=== PATIENT | male | born 1965 | race Caucasian/White ===

== ENCOUNTER → 2019-04-12 | Day surgery (SDC) | payer OTHER ==
[2019-04-10 10:31] LABS: BASOPHILS # (AUTO) 0.1 (0.0-0.1); BASOPHILS % 0.9 % (0.0-1.0); EOSINOPHILS # (AUTO) 0.1 (0.0-0.4); EOSINOPHILS % 1.7 % (0.0-6.0); HEMATOCRIT 44.9 % (38.2-49.6); HEMOGLOBIN 14.9 g/dL (14.0-18.0); LYMPHOCYTES # (AUTO) 1.6 (1.0-3.2); MEAN CORPUSCULAR HEMOGLOBIN 30.3 pg (28-32); MEAN CORPUSCULAR HGB CONC 33.2 g/dL (31-35); MEAN CORPUSCULAR VOLUME 91.3 fL (81-99); MONOCYTES # (AUTO) 0.7 (0.2-0.8); MONOCYTES % 9.2 % (4.4-11.3); NEUTROPHILS # (AUTO) 5.1 (2.1-6.9); NEUTROPHILS % 66.9 % (38.7-80.0); PLATELET COUNT 266 x10e3/uL (140-360); RED BLOOD COUNT 4.92 x10e6/uL (4.3-5.7); RED CELL DISTRIBUTION WIDTH 12.9 % (11.7-14.4)
[2019-04-10 10:48] LABS: ALANINE AMINOTRANSFERASE 22 IU/L (0-55); ALBUMIN 3.6 g/dL (3.5-5.0); ALBUMIN/GLOBULIN RATIO 1.2 (0.8-2.0); ALKALINE PHOSPHATASE 76 IU/L (40-150); BLOOD UREA NITROGEN 11 mg/dL (7-26); BUN/CREATININE RATIO 9 (6-25); CALCIUM 9.4 mg/dL (8.4-10.2); CARBON DIOXIDE 29 mmol/L (22-29); CHLORIDE 100 mmol/L (98-107); CREATININE, SERUM 1.17 mg/dL (0.72-1.25); EST GLOMERULAR FILTRATION RATE > 60 ML/MIN (60-); GLUCOSE 224 mg/dL (74-118); SODIUM 136 mmol/L (136-145)
[~2019-04-12] VITALS: Ht 177.8 cm; Wt 99.8 kg
[2019-04-12] VITALS (9 sets, daily range): BP systolic 105–174; BP diastolic 67–101
[~2019-04-12] MED LIST: ASPIR 8181 MG PO; CRESTOR10 MG PO; FENTANYL CITRATE/PF 100MCG/2 ML INJ ONE; HEPARIN SOD (PORCINE) 1000 UNIT/ML 30ML ONE; HEPARIN SOD/SOD CHLORIDE 2,000 ML ONE; IOPAMIDOL 370 MG/ML 200 ML INFUS..BTL INJ ONE; LANTUS 3ML100 UNITS/ SC; LEVITRA20 MG PO; LIDOCAINE HCL 2% LOCAL 20 ML VIAL ONE; LISINOPRIL10 MG PO; METFORMIN HCL500 MG PO; MIDAZOLAM HCL 2 MG/2 ML VIAL ONE; NITROGLYCERIN/D5W 200 MCG/ML 250 ML ONE; NOVOLOG100 UNIT/1 SC; SODIUM CHLORIDE 0.9% 1000ML 1,000 ML ONE; TESTOSTERO200 MG/1 M IM; VERAPAMIL HCL 2.5 MG/ML 2 ML VIAL ONE
--- OUTSIDE RECORDS SUMMARY | 2019-04-12 06:19 | XMS REPORT | Summary of Care ---
Author Author [facility] Organization [facility] Urology [facility] Address Unknown Phone Unavailable Encounter HQ Encntr_alijuanito(FIN) [id number] Date(s): 12/21/18 - 12/21/18 [facility] Urology [address] [address]- [phone] Discharge Disposition: Home or Self Care Attending Physician: Mitch Yuen MD Vital Signs No data available for this section Problem List Condition Effective Dates Status Health Status Informant Simple Active obesity(Confirmed) Allergies, Adverse Reactions, Alerts No Known Medication Allergies Medications No data available for this section Results No data available for this section Immunizations No data available for this section Procedures Procedure Date Related Diagnosis Body Site Status Collection of venous blood by venipuncture 12/21/18 Completed Social History No data available for this section Assessment and Plan No data available for this section
--- OUTSIDE RECORDS SUMMARY | 2019-04-12 06:19 | XMS REPORT | Summary of Care ---
Author Author [facility] Organization [facility] Urology [facility] Address Unknown Phone Unavailable Encounter RADHA Herzog(FIN) [id number] Date(s): 01/04/19 - 01/04/19 [facility] Urology [address] [address]- [phone] Discharge Disposition: Home or Self Care Attending Physician: Mitch Yuen MD Vital Signs Most recent to 1 oldest [Reference Range]: Height 177.8 cm (01/04/19 4:03 PM) Weight 101.534 kg (01/04/19 4:03 PM) Body Mass Index 32.12 m2 (01/04/19 4:03 PM) Problem List Condition Effective Dates Status Health Status Informant Diabetes(Confirmed) Resolved High Resolved cholesterol(Confirme d) High blood Resolved pressure(Confirmed) Hypogonadism Resolved male(Confirmed) Simple Active obesity(Confirmed) Allergies, Adverse Reactions, Alerts No Known Medication Allergies Medications No Known Medications Results No data available for this section Immunizations No data available for this section Procedures Procedure Date Related Diagnosis Body Site Status Operation on neck 2006 Completed Social History Social History Type Response Smoking Status Former smoker; Exposure to Tobacco Smoke None; Cigarette Smoking Last 365 Days No; Reg Smoking Cessation Counseling No1 entered on: 01/04/19 CARMEN ORTIZ 2014 Assessment and Plan No data available for this section
--- OUTSIDE RECORDS SUMMARY | 2019-04-12 06:19 | XMS REPORT | Continuity of Care Document ---
Author Author [facility] Organization [facility] Address Unknown Phone Unavailable Care Team Providers Care Strategy Director Name Role Phone [facility] Unavailable Unavailable Problems Problem Status Onset Date Classification Date Reported Comments Source Simple obesity (disorder) Active Problem 01/06/2019 [facility] Diabetes mellitus (disorder) Resolved Problem 01/06/2019 [facility] Hypercholesterolemia (disorder) Resolved Problem 01/06/2019 [facility] Hypertensive disorder, systemic arterial (disorder) Resolved Problem 01/06/2019 [facility] Male hypogonadism (disorder) Resolved Problem 01/06/2019 [facility] Medications Medication Details Route Status Patient Instructions Ordering Provider Order Date Source vardenafil 20 MG Oral Tablet [Levitra] 20 mg=1 tab, PO, Daily, PRN for erectile dysfunction, 1 hour before sexual activity, # 2 tab, 11 Refill(s) Active 12/14/2018 [facility] testosterone cypionate 200 mg/mL intramuscular solution 100 mg, IM, Q7D, inject 0.5cc(100mcg) every 7 days, # 10 mL, 5 Refill(s) Active 12/14/2018 [facility] Rosuvastatin calcium 10 MG Oral Tablet [Crestor] 10 mg=1 tab, PO, Bedtime, 0 Refill(s) Active 12/14/2018 [facility] 24 HR Linagliptin 5 MG / Metformin hydrochloride 1000 MG Extended Release Oral Tablet 1 tab, PO, Daily, 0 Refill(s) Active 12/14/2018 [facility] Lisinopril PO, Daily, 0 Refill(s) Active 12/14/2018 [facility] NovoLog SUB-Q, TID-Before Meals, 0 Refill(s) Active 12/14/2018 [facility] 3 ML Insulin Glargine 100 UNT/ML Prefilled Syringe [Lantus] SUB-Q, 0 Refill(s) Active 12/14/2018 [facility] Allergies, Adverse Reactions, Alerts Substance Category Reaction Severity Reaction type Status Date Reported Comments Source No Known Medication Allergies Assertion Drug allergy [facility] Immunizations No Data Provided for This Section Results No Data Provided for This Section Pathology Reports No Data Provided for This Section Diagnostic Reports No Data Provided for This Section Consultation Notes No Data Provided for This Section Discharge Summaries No Data Provided for This Section History and Physicals No Data Provided for This Section Vital Signs Vital Sign Value Date Comments Source BMI Calculated 32.12 01/04/2019 [facility] Weight 101.534 01/04/2019 [facility] Height 177.8 cm 01/04/2019 [facility] BMI Calculated 30.63 12/14/2018 [facility] Systolic (mm Hg) 161 12/14/2018 [facility] Diastolic (mm Hg) 118 12/14/2018 [facility] Heart Rate 92 12/14/2018 [facility] Height 177.8 cm 12/14/2018 [facility] Weight 96.818 12/14/2018 [facility] Encounters Location Location Details Encounter Type Encounter Number Reason For Visit Attending Provider ADM Date DC Date Status Source Outpatient [id number] Mitch Wilfrid 12/14/2018 [facility] Outpatient [id number] Mitch Wilfrid 12/14/2018 12/15/2018 [facility] Outpatient [id number] -VISIT, NURSE 12/21/2018 [facility] Outpatient [id number] Mitch Wilfrid 12/21/2018 12/22/2018 [facility] Outpatient [id number] Mitch Wilfrid 01/04/2019 [facility] Outpatient [id number] Mitch Wilfrid 01/04/2019 01/05/2019 [facility] Outpatient [id number] Mitch Wilfrid 04/05/2019 [facility] Procedures Procedure Code Date Perfomer Comments Source Collection of venous blood by venipuncture 71811 12/21/2018 [facility] Operation on neck [id number] 08/21/2006 [facility] Assessment and Plan No Data Provided for This Section Plan of Care No Data Provided for This Section Social History Social History Date Source Social History TypeResponse Smoking Status Former smoker; Exposure to Tobacco Smoke None; Cigarette Smoking Last 365 Days No; Reg Smoking Cessation Counseling No1 entered on: 01/04/19 CARMEN ORTIZ 201301/04/2019 [facility] Family History No Data Provided for This Section Advance Directives No Data Provided for This Section Functional Status No Data Provided for This Section
--- OUTSIDE RECORDS SUMMARY | 2019-04-12 06:19 | XMS REPORT | Summary of Care ---
Author Author [facility] Organization [facility] Urology [facility] Address Unknown Phone Unavailable Encounter RADHA Herzog(ANAHI) [id number] Date(s): 12/14/18 - 12/14/18 [facility] Urology [address] [address]- [phone] Discharge Disposition: Home or Self Care Attending Physician: Mitch Yuen MD Vital Signs Most recent to 1 oldest [Reference Range]: Height 177.8 cm (12/14/18 11:14 AM) Blood Pressure 161/118 mmHg [90-140/60-90 mmHg] *HI* (12/14/18 11:14 AM) Peripheral Pulse 92 bpm Rate [60-100 bpm] (12/14/18 11:14 AM) Weight 96.818 kg (12/14/18 11:14 AM) Body Mass Index 30.63 m2 (12/14/18 11:14 AM) Problem List Condition Effective Dates Status Health Status Informant Simple Active obesity(Confirmed) Allergies, Adverse Reactions, Alerts No Known Medication Allergies Medications Crestor 10 mg oral tablet 10 mg=1 tab, PO, Bedtime, 0 Refill(s) Start Date: 12/14/18 Status: Ordered Lantus Solostar Pen 100 units/mL subcutaneous solution SUB-Q, 0 Refill(s) Start Date: 12/14/18 Status: Ordered Levitra 20 mg oral tablet 20 mg=1 tab, PO, Daily, PRN for erectile dysfunction, 1 hour before sexual activ ity, # 2 tab, 11 Refill(s) Start Date: 12/14/18 Status: Ordered linagliptin-metFORMIN 5 mg-1000 mg oral tablet, extended release 1 tab, PO, Daily, 0 Refill(s) Start Date: 12/14/18 Status: Ordered lisinopril PO, Daily, 0 Refill(s) Start Date: 12/14/18 Status: Ordered NovoLOG SUB-Q, TID-Before Meals, 0 Refill(s) Start Date: 12/14/18 Status: Ordered testosterone cypionate 200 mg/mL intramuscular solution 100 mg, IM, Q7D, inject 0.5cc(100mcg) every 7 days, # 10 mL, 5 Refill(s) Start Date: 12/14/18 Status: Ordered Results No data available for this section Immunizations No data available for this section Procedures No data available for this section Social History No data available for this section Assessment and Plan No data available for this section
--- NOTE | 2019-04-12 08:30 | NUR ---
0830a RADIAL Compression removal: Initial Cuff volume 7 cc -5 cc Removed No hematoma/bleeding noted with normal neurovascular function. By Su RN -2 cc Removed No hematoma/ bleeding noted with normal neurovascular function. 0845a TR band removed completed Stasis achieved sterile 2x2,Tegaderm, Coban dressing No hematoma, bleeding noted with normal neurovascular function. Wrist splint in place. Pt instructed on POC. Ds/Rn
--- NOTE | 2019-04-12 08:30 | NUR ---
0830a bedside report received from IRINEO Blue. Alert oriented and appropriate, PERRLA, respirations even and unlabored to room air. Pulses x4 extremities equal and strong. Pedal pulses PT/DP x4 and marked. Cap fill brisk < 3 sec.Reduce air in bladder (7cc) in progress reported 2cc in band. No gross issues pain,pallor,pressure or dysthrhmia. Skin warm and dry integrity appears XXX. IV 20g to left ac presents healthy w/o s/s of infiltration or complaint. Abdomen soft and supple. pt offered toileting, denies need to urinate or defecate. No personal affects with patient. Family . Pt and Delaney verbalizes understanding of POC. Currently w/o complaint of pain or need. ds/rn
--- NOTE | 2019-04-12 09:30 | NUR ---
0930Pt meets DC criteria. rt radial assessed for s/s of complication and presence of hematoma. warm, dry, no discolor, and pulses present. IV removed from left ac. Distal tip appears intact. VS WNL. Pt denies pain, sob, or need at this time. Family , Delaney at bedside.Review of discharge paperwork and follow up instructions. verbalized understanding. Pt to wheelchair and transported to front of hospital. Transferred to private vehicle under own strength w/o incident with DC paperwork in hand.ds/rn
--- NOTE | 2019-05-13 14:18 | Operative Report ---
DATE OF PROCEDURE: 05/13/2019 SURGEON: Reji Welch MD INDICATION FOR PROCEDURE: Chest pain, positive stress test. PROCEDURES PERFORMED: 1. Coronary angiography, right radial approach. 2. Left heart catheterization. PROCEDURE DETAILS: The patient was brought to the cardiac catheterization laboratory in a fasting state. Right wrist was prepped and draped in a sterile fashion. A 6-Romanian Slender sheath was inserted in the right radial artery using modified Seldinger technique. Coronary angiography was performed using 5-Romanian radial catheter to engage both the left and right coronary system. Left heart catheterization was performed using a pigtail catheter. All catheters were removed over a wire. Please see nursing notes for medications administered during the procedure. The patient tolerated the procedure well. There were no immediate complications. SIGNIFICANT FINDINGS: Left main large vessel. No significant coronary artery disease. LAD, large vessel goes to the apex, large diagonal 1. No significant CAD. Left circumflex, large vessel, nondominant, two large OM branches, 20% to 30% plaquing in the mid to distal circumflex, otherwise no obstructive CAD. RCA, large dominant vessel with large RPDA distally. There is 30% to 40%. stenosis in the proximal and mid RCA, otherwise no obstructive CAD. GRAFTS AND IMPLANTS: None. SPECIMEN REMOVED: None. ESTIMATED BLOOD LOSS: 20 mL. COMPLICATIONS: None. FINAL RECOMMENDATIONS: 1. Continue optimal medical therapy and risk factor control. 2. Follow up in office two weeks post procedure. Reji Welch MD KVP/MODL /[id number]
== END | disposition home or self-care (01) ==
LOC: CATH LAB 06:15
PROVIDERS: ATTEND Internal Medicine
DX: I20.8 Other forms of angina pectoris (principal); I87.2 Venous insufficiency (chronic) (peripheral); I10 Essential (primary) hypertension; E78.5 Hyperlipidemia, unspecified; E11.9 Type 2 diabetes mellitus without complications; Z87.891 Personal history of nicotine dependence; Z01.812 Encounter for preprocedural laboratory examination; Z79.84 Long term (current) use of oral hypoglycemic drugs; Z83.3 Family history of diabetes mellitus; Z82.49 Family history of ischemic heart disease and other diseases of the circulatory system
CPT/HCPCS: 36415; 80053; 85025; 93458; C1887; J1644; J2001; J2250; J3010; J7030; Q9967